=== PATIENT | female | born 1975 | race Caucasian/White ===

== ENCOUNTER 2022-10-01 14:21 | Outpatient (CLI) | payer BC, SELFPAY ==
[2022-10-03 19:05] LABS: TSH Receptor Antibody <0.80 IU/L (<=1.75)
== END 2022-10-01 14:22 | disposition home or self-care (01) ==
LOC: LONREF 14:22
PROVIDERS: Visit Provider Obstetrics & Gynecology
DX: Z01.419 Encounter for gynecological examination (general) (routine) without abnormal findings (principal); L65.9 Nonscarring hair loss, unspecified
CPT/HCPCS: 83520

== ENCOUNTER 2022-11-26 07:53 | Emergency (ER) | payer BC, SELFPAY ==
[2022-11-26] VITALS (16 sets, daily range): BP systolic 106–123; BP diastolic 71–87; PULSE 70–91; RESP 18; TEMP 36.7; O2SAT 97–100; BMI 25.8
--- NOTE | 2022-11-26 08:45 | ED.GENADULT ---
HPI - General Adult General Date Seen: 11/26/22 Chief complaint: Chest Pain Stated complaint: Chest pain/radiates to left jaw Time Seen by Provider: 11/26/22 08:13 Source: patient Mode of arrival: ambulatory Limitations: no limitations History of Present Illness HPI narrative: Patient is a 47-year-old woman with underlying history of celiac disease who presents for evaluation of chest pain. She is here on Saturday, notes pain started on Saturday. She has had some associated intermittent lightheadedness. Pain initially on Saturday was more sharp, lasting a few seconds at a time, episodic, not associated with breathing, position, eating, exertion, or any other activities. Over the course of the weekend, she developed more of a pressure-type pain, which again has been episodic, lasting a little bit longer at a time, but again not predictable or associated with any particular activities. Today she feels like the pressure has been there most of the day. This morning, she had a sharp pain in her jaw when she woke up, which is what ultimately made her decide to come in. She has had some periods of lightheadedness, which she attributed to the fact that she has had 2 periods this month. Sometimes she gets anemic with heavy bleeding and so she thought that was probably the cause of the lightheadedness. She denies syncope, shortness of breath, nausea, vomiting, fever, unusual leg pain or swelling. She has a history of celiac, has not had significant GI complaints. She is followed at the [facility] for that, says she has probably behind schedule on colonoscopy an MRI for her celiac. She does have a history of cholecystectomy and appendectomy, otherwise general health is good. Denies family history of serious medical conditions, specifically no coronary artery disease, stroke, PE DVT. There is a history of thyroid disease. She does not smoke or drink. Related Data Home Medications Medication Instructions Recorded Confirmed evening primrose oil 500 mg capsule 500 mg PO BID 10/01/22 10/01/22 ferrous gluconate 324 mg (38 mg 324 mg PO QDAY 10/01/22 10/01/22 iron) tablet loratadine 10 mg tablet (Claritin) 10 mg PO QDAY PRN allergy symptoms 10/01/22 10/01/22 multivitamin,tx-minerals 1 tab PO QDAY 10/01/22 10/01/22 rizatriptan 10 mg tablet 10 mg PO ONCE PRN migraine headache 10/01/22 10/01/22 Allergies Allergy/AdvReac Type Severity Reaction Status Date / Time Sulfa (Sulfonamide Allergy Mild Hives Verified 10/01/22 13:24 Antibiotics) gluten Allergy Unknown Celiac's Verified 10/01/22 13:24 Disease hydrocodone AdvReac Mild Vomiting Verified 10/01/22 13:24 latex AdvReac Unknown Rash Verified 10/01/22 13:24 Review of Systems Status of ROS: Reports: 10 or more systems reviewed and unremarkable except as noted in History and below [facility] Medical History Celiac disease (11/03/10) Essential tremor (08/25/12) Hemangioma of liver 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) History of vitamin D deficiency Irritable bowel syndrome (08/14/10) Menorrhagia Migraine (02/10/10) Seasonal allergies (06/14/11) Surgical History History of 2 sections History of breast biopsy History of cholecystectomy (2015) History of tubal ligation (2012) Status post appendectomy (11/12/12) Status post bunionectomy Family History Father Graves' disease Alcohol dependence Aunt Graves' disease Crohn's disease Uncle Graves' disease Crohn's disease Mother Alcohol dependence Brother Alcohol dependence Maternal Grandmother Lung cancer Paternal Grandfather Stroke High blood pressure Paternal Grandmother Breast cancer Maternal Grandfather Prostate cancer Social History Smoking Status: Former smoker How often do you have a drink containing alcohol: monthly or less AUDIT-C Alcohol total score: 1 Non-prescribed substance use: denies use Are you now , , , , never or living with a partner: Social isolation score (0-1 are the most socially isolated patients): 1 Little interest or pleasure in doing things: not at all Feeling down, depressed, or hopeless: not at all Do you think of yourself as: straight/heterosexual Gender Identity: female service: No Exam Narrative: Exam Narrative: Vital signs as noted above. In general, an alert, well-appearing patient. Head: Normocephalic, atraumatic. Eyes: Pupils are equal reactive. Extraocular movements are full. Conjunctivae are normal. ENT: Mucous membranes are moist. Throat is normal. Neck: Supple without lymphadenopathy. Heart: Regular rate and rhythm. No murmur or rub. Lungs: Clear bilaterally. No increased work of breathing, crackles or wheezes. Abdomen: Soft and nontender. No organomegaly. Extremities: Well perfused. No edema. No calf tenderness. Pulses intact. Neurologic: Patient is alert and oriented to person and place. Speech is fluent. Face is symmetric. Moves all extremities equally. Affect: Normal. Skin: Warm and dry. Well perfused. Const: Vital Signs, click to edit/add: Vital Signs - 24 hr 11/26/22 07:58 11/26/22 08:58 11/26/22 09:28 Temperature 98.0 F Pulse Rate 72 Pulse Rate [Left P ulse Oximeter] 76 Respiratory Rate 18 Blood Pressure Blood Pressure [] 121/82 Pulse Oximetry 97 100 [facility] 11/26/22 09:30 11/26/22 09:31 11/26/22 09:32 Temperature Pulse Rate 73 71 73 Pulse Rate [Left P ulse Oximeter] Respiratory Rate Blood Pressure 120/83 Blood Pressure [] Pulse Oximetry 100 100 100 [facility] 11/26/22 10:00 11/26/22 10:02 11/26/22 10:03 Temperature Pulse Rate 74 74 71 Pulse Rate [Left P ulse Oximeter] Respiratory Rate Blood Pressure 110/71 Blood Pressure [] Pulse Oximetry 100 100 100 [facility] 11/26/22 10:30 11/26/22 10:32 11/26/22 11:07 Temperature Pulse Rate 78 70 89 Pulse Rate [Left P ulse Oximeter] Respiratory Rate Blood Pressure 123/87 Blood Pressure [] Pulse Oximetry 99 99 99 [facility] 11/26/22 11:30 11/26/22 11:32 11/26/22 12:00 Temperature Pulse Rate 81 91 72 Pulse Rate [Left P ulse Oximeter] Respiratory Rate Blood Pressure 106/78 Blood Pressure [] Pulse Oximetry 99 98 99 Oxygen Delivery Me thod 11/26/22 12:02 Temperature Pulse Rate 81 Pulse Rate [Left P ulse Oximeter] Respiratory Rate Blood Pressure 108/76 Blood Pressure [] Pulse Oximetry 100 Oxygen Delivery Me thod Course Course Hospital Course: On arrival, patient had an EKG which shows by my review a normal sinus rhythm, ventricular rate of 72 beats per minute. No acute ST segment changes, T-waves are unremarkable. She is maintained on the monitor and oximeter. Overall, her history is not significantly suggestive of acute coronary syndrome. I did give her an aspirin while we await lab tests. She does not have significant risk factors for PE suspicion is low for other causes such as dissection, pneumothorax, pneumonia, congestive heart failure, and GI causes seem relatively unlikely as well. She is status post cholecystectomy, does not have any abdominal tenderness so I would doubt pancreatitis, choledocholithiasis, or other biliary condition. Pain is not positional, EKG does not show changes suggestive of pericarditis. Labs are all reassuring. CBC shows a normal white blood cell count, hemoglobin is 11.8, only minimally low. Electrolytes are normal, LFTs are entirely within normal limits. CRP is less than 0.5, BNP is 54. Initial troponin and 2 hour troponin of 0 0. COVID is negative. TSH is normal at 1.88. Lipase is normal at 135. D-dimer is reassuringly normal at 0.33. Chest x-ray by my review looks slightly hyper expanded, but is otherwise normal, no evidence of pneumothorax, pleural effusion, pulmonary edema, infiltrate or other abnormalities. Final radiology report is pending at this time. She did receive some Toradol for discomfort. She reported to the nurse that the discomfort radiates toward the back like when she had gallbladder pain, her gallbladder is surgically absent, she has a normal lipase, normal bilirubin, LFTs, no abdominal tenderness. Etiology for symptoms at this time remains unclear. In the absence of any significant findings on laboratory or exam, would suggest observation at this time, close primary care follow-up and return for any worsening/severe or new symptoms. Discussed that while the troponin does rule out acute coronary syndrome, it does not rule out the possibility of coronary artery disease, and stress test may be considered if symptoms are persistent. Vital Signs Vital signs: Initial Vital Signs Temperature 98.0 F 11/26/22 07:58 Temperature Source Temporal Artery Scan 11/26/22 07:58 Pulse Rate 76 11/26/22 07:58 Respiratory Rate 18 11/26/22 07:58 Blood Pressure 121/82 11/26/22 07:58 Blood Pressure Mean 95 11/26/22 07:58 Pulse Oximetry 97 11/26/22 07:58 Oxygen Delivery Method 11/26/22 07:58 Vital Signs Temperature 98.0 F 11/26/22 07:58 Pulse Rate 76 11/26/22 07:58 Respiratory Rate 18 11/26/22 07:58 Blood Pressure 121/82 11/26/22 07:58 Pulse Oximetry 97 11/26/22 07:58 Oxygen Delivery Method 11/26/22 07:58 Temperature 98.0 F 11/26/22 07:58 Pulse Rate 81 11/26/22 12:02 Respiratory Rate 18 11/26/22 07:58 Blood Pressure 108/76 11/26/22 12:02 Pulse Oximetry 100 11/26/22 12:02 Oxygen Delivery Method 11/26/22 07:58 Medical Decision Making Lab Data Labs: Lab Results 11/26/22 11/26/22 11/26/22 Range/Units 08:55 08:55 08:55 WBC 5.65 (4.50-11.00) K/uL RBC 3.95 L (4.00-5.20) m/uL Hgb 11.8 L (12.0-16.0) gm/dL Hct 35.9 (33.0-51.0) % MCV 91 (80-100) fL MCH 30 (26-34) pg MCHC 33 (32-36) gm/dL RDW Coeff of Malachi 12.3 (11.5-15.5) % Plt Count 346 (140-440) K/uL Neut % (Auto) 51.5 (42.0-72.0) % Lymph % (Auto) 36.6 (20-44) % [place] % (Auto) 8.7 (0.0-11.0) % Eos % (Auto) 2.5 (0.0-7.0) % Baso % (Auto) 0.5 (0.0-3.0) % Neut # (Auto) 2.91 (1.7-7.0) K/uL Lymph # (Auto) 2.07 (0.90-2.90) K/uL [place] # (Auto) 0.50 (0.00-0.90) K/UL Eos # (Auto) 0.14 (0.00-0.50) K/uL Baso # (Auto) 0.03 (0.00-0.30) K/uL D-Dimer Quant (PE/DVT) 0.33 (0.00-0.50) ug/ml Sodium 138 (135-149) mmol/L Potassium 4.6 (3.6-5.1) mmol/L Chloride 104 (96-114) mmol/L Carbon Dioxide 27 (20-32) mmol/L BUN 15 (5-24) mg/dL Creatinine 0.9 (0.5-1.5) mg/dL Estimated Creat Clear 71.03 Estimated GFR 80 ml/min Glucose 98 (60-115) mg/dL Calcium 9.1 (8.4-10.6) mg/dL Total Bilirubin 0.5 (0.1-1.5) mg/dL Direct Bilirubin 0.2 (0.0-0.5) mg/dL AST 25 (12-35) U/L ALT 22 (4-35) U/L Alkaline Phosphatase 69 (40-150) U/L C-Reactive Protein < 0.5 L (0.5-1.0) mg/dL NT-Pro-B Natriuret Pep 54 pg/mL Total Protein 6.8 (6.0-8.3) g/dL Albumin 4.1 (3.3-5.0) g/dL Lipase 135 (23-300) U/L TSH (0.270-4.200) uIU/mL SARS-CoV-2 (PCR) (Negative) POC Troponin I (0.01-0.04) ng/ml 11/26/22 11/26/22 11/26/22 Range/Units 08:55 08:55 08:55 WBC (4.50-11.00) K/uL RBC (4.00-5.20) m/uL Hgb (12.0-16.0) gm/dL Hct (33.0-51.0) % MCV (80-100) fL MCH (26-34) pg MCHC (32-36) gm/dL RDW Coeff of Malachi (11.5-15.5) % Plt Count (140-440) K/uL Neut % (Auto) (42.0-72.0) % Lymph % (Auto) (20-44) % [place] % (Auto) (0.0-11.0) % Eos % (Auto) (0.0-7.0) % Baso % (Auto) (0.0-3.0) % Neut # (Auto) (1.7-7.0) K/uL Lymph # (Auto) (0.90-2.90) K/uL [place] # (Auto) (0.00-0.90) K/UL Eos # (Auto) (0.00-0.50) K/uL Baso # (Auto) (0.00-0.30) K/uL D-Dimer Quant (PE/DVT) (0.00-0.50) ug/ml Sodium (135-149) mmol/L Potassium (3.6-5.1) mmol/L Chloride (96-114) mmol/L Carbon Dioxide (20-32) mmol/L BUN (5-24) mg/dL Creatinine (0.5-1.5) mg/dL Estimated Creat Clear Estimated GFR ml/min Glucose (60-115) mg/dL Calcium (8.4-10.6) mg/dL Total Bilirubin (0.1-1.5) mg/dL Direct Bilirubin (0.0-0.5) mg/dL AST (12-35) U/L ALT (4-35) U/L Alkaline Phosphatase (40-150) U/L C-Reactive Protein (0.5-1.0) mg/dL NT-Pro-B Natriuret Pep pg/mL Total Protein (6.0-8.3) g/dL Albumin (3.3-5.0) g/dL Lipase (23-300) U/L TSH 1.880 (0.270-4.200) uIU/mL SARS-CoV-2 (PCR) Negative SARS-CoV-2 (Negative) POC Troponin I 0.00 L (0.01-0.04) ng/ml 11/26/22 Range/Units 10:50 WBC (4.50-11.00) K/uL RBC (4.00-5.20) m/uL Hgb (12.0-16.0) gm/dL Hct (33.0-51.0) % MCV (80-100) fL MCH (26-34) pg MCHC (32-36) gm/dL RDW Coeff of Malachi (11.5-15.5) % Plt Count (140-440) K/uL Neut % (Auto) (42.0-72.0) % Lymph % (Auto) (20-44) % [place] % (Auto) (0.0-11.0) % Eos % (Auto) (0.0-7.0) % Baso % (Auto) (0.0-3.0) % Neut # (Auto) (1.7-7.0) K/uL Lymph # (Auto) (0.90-2.90) K/uL [place] # (Auto) (0.00-0.90) K/UL Eos # (Auto) (0.00-0.50) K/uL Baso # (Auto) (0.00-0.30) K/uL D-Dimer Quant (PE/DVT) (0.00-0.50) ug/ml Sodium (135-149) mmol/L Potassium (3.6-5.1) mmol/L Chloride (96-114) mmol/L Carbon Dioxide (20-32) mmol/L BUN (5-24) mg/dL Creatinine (0.5-1.5) mg/dL Estimated Creat Clear Estimated GFR ml/min Glucose (60-115) mg/dL Calcium (8.4-10.6) mg/dL Total Bilirubin (0.1-1.5) mg/dL Direct Bilirubin (0.0-0.5) mg/dL AST (12-35) U/L ALT (4-35) U/L Alkaline Phosphatase (40-150) U/L C-Reactive Protein (0.5-1.0) mg/dL NT-Pro-B Natriuret Pep pg/mL Total Protein (6.0-8.3) g/dL Albumin (3.3-5.0) g/dL Lipase (23-300) U/L TSH (0.270-4.200) uIU/mL SARS-CoV-2 (PCR) (Negative) POC Troponin I 0.00 L (0.01-0.04) ng/ml Discharge Plan Discharge Clinical Impression: Chest pain Patient Disposition: Home, Self-Care Condition: Improved Instructions: Chest Pain (ED) Additional Instructions: Return for severe pain, new symptoms such as shortness of breath, vomiting, fever. Primary care follow-up in the next week, this can be [facility] or [facility], whichever is more convenient for you. Prescriptions: No Action evening primrose oil 500 mg capsule 500 mg PO BID Rx Instructions: give with meal/snack multivitamin,tx-minerals Tablet 1 tab PO QDAY ferrous gluconate 324 mg (38 mg iron) tablet 324 mg PO QDAY rizatriptan 10 mg tablet 10 mg PO ONCE PRN (Reason: migraine headache) Rx Instructions: as a single dose loratadine [Claritin] 10 mg tablet 10 mg PO QDAY PRN (Reason: allergy symptoms) Follow Up/Referrals: Provider,Not a Local [Primary Care Provider] - Stand Alone Forms: Employee Benefit Plansth Info Instructions
[2022-11-26] MEDS: 0.9 % SODIUM CHLORIDE 1000 ml 1,000 ML IV (08:52)
[2022-11-26] MEDS: ASPIRIN 81 MG TAB.CHEW 324 MG PO (08:52)
[2022-11-26 09:11] LABS: Basophils Absolute Auto 0.03 K/uL (0.00-0.30); Basophils Percent Auto 0.5 % (0.0-3.0); Eosinophils Absolute Auto 0.14 K/uL (0.00-0.50); Eosinophils Percent Auto 2.5 % (0.0-7.0); Hematocrit 35.9 % (33.0-51.0); Hemoglobin* 11.8 gm/dL (12.0-16.0); Immature Granulocytes Abs Auto 0.01 K/uL (0.00-0.30); Immature Granulocytes Pct Auto 0.2 %; Lymphocytes Absolute Auto 2.07 K/uL (0.90-2.90); Lymphocytes Percent Auto 36.6 % (20-44); Mean Corpuscular HGB Conc 33 gm/dL (32-36); Mean Corpuscular Hemoglobin 30 pg (26-34); Mean Corpuscular Volume 91 fL (80-100); Monocytes Percent Auto 8.7 % (0.0-11.0); Neutrophils Absolute Auto 2.91 K/uL (1.7-7.0); Neutrophils Percent Auto 51.5 % (42.0-72.0); Platelet Count* 346 K/uL (140-440); RDW Coefficient of Variation % 12.3 % (11.5-15.5); Red Blood Count 3.95 m/uL (4.00-5.20); White Blood Count* 5.65 K/uL (4.50-11.00)
[2022-11-26 09:12] LABS: Slide Review Reflex No
[2022-11-26 09:40] LABS: Albumin* 4.1 g/dL (3.3-5.0); Chloride* 104 mmol/L (96-114)
[2022-11-26 09:41] LABS: Potassium* 4.6 mmol/L (3.6-5.1); Sodium* 138 mmol/L (135-149)
[2022-11-26 09:42] LABS: Creatinine* 0.9 mg/dL (0.5-1.5); Est. Creatinine Clearance* 71.03; Estimated Glomerular Filt Rate 80 ml/min
[2022-11-26 09:43] LABS: Alkaline Phosphatase* 69 U/L (40-150); Aspartate Amino Transferase* 25 U/L (12-35); Bilirubin Direct* 0.2 mg/dL (0.0-0.5); Bilirubin Total* 0.5 mg/dL (0.1-1.5); Blood Urea Nitrogen* 15 mg/dL (5-24); Carbon Dioxide* 27 mmol/L (20-32); Lipase* 135 U/L (23-300); Total Protein* 6.8 g/dL (6.0-8.3)
[2022-11-26 09:44] LABS: Alanine Aminotransferase* 22 U/L (4-35); Calcium* 9.1 mg/dL (8.4-10.6); Glucose* 98 mg/dL (60-115)
[2022-11-26 09:48] LABS: SARS PCR* Negative SARS-CoV-2 (Negative)
[2022-11-26 10:08] LABS: C Reactive Protein* < 0.5 mg/dL (0.5-1.0); NT Pro B Type NatriureticPept* 54 pg/mL
[2022-11-26 10:40] LABS: D Dimer Quantitative* 0.33 ug/ml (0.00-0.50)
--- NOTE | 2022-11-26 10:48 | CRLHL7_ITS ---
For Patients: As a result of the Century Cures Act, medical imaging exams and procedure reports are released immediately into your electronic medical record. You may view this report before your referring provider. If you have questions, please contact your health care provider. INDICATION: Chest pain. TECHNIQUE: Chest 2 views. COMPARISON: None. FINDINGS: Cardiovascular and mediastinum: Heart size and vasculature are normal in caliber and appearance. Lungs and pleural spaces: Lungs are clear. No sign of infiltrate or mass. No sign of pleural effusion. No pneumothorax. Bones and soft tissues: No significant findings. IMPRESSION: No acute or significant findings. Dictated by Johan Ha MD @ 11/26/2022 12:00:14 PM (Electronically Signed)
[2022-11-26] MEDS: KETOROLAC 15 MG/ML inj IVP (11:14)
== END 2022-11-26 12:15 | disposition home or self-care (01) ==
PROVIDERS: Emergency Provider Emergency Medicine
DX: R07.9 Chest pain, unspecified (principal)
CPT/HCPCS: 36415; 71046; 80048; 80076; 83690; 83880; 84443; 84484; 85025; 85379; 86140; 87635; 93005; 94761; 96374; 99284; 99285; A9270; J1885; J7030

== ENCOUNTER 2022-11-27 19:11 | Outpatient (CLI) | payer BC, SELFPAY ==
--- NOTE | 2022-11-27 19:30 | CRLHL7_ITS ---
For Patients: As a result of the Century Cures Act, medical imaging exams and procedure reports are released immediately into your electronic medical record. You may view this report before your referring provider. If you have questions, please contact your health care provider. BILATERAL SCREENING MAMMOGRAM WITH COMPUTER-AIDED DETECTION AND TOMOSYNTHESIS TECHNIQUE: CC and MLO views were obtained. These mammographic images have been obtained using full-field digital technique. These mammographic images were interpreted with the benefit of computer-aided detection. Breast Tomosynthesis was used in this interpretation. COMPARISON FILM: 03/29/21, 03/28/20, 11/12/18. FINDINGS: The breasts are heterogeneously dense, which may obscure small masses IMPRESSION: There is no radiographic evidence for malignancy. ASSESSMENT: BI-RADS Category 1: Negative RECOMMENDATION: Routine screening mammogram in 1 year. A lay language report of this examination will be provided to the patient. Ramón Ch M.D. Diagnostic Radiologist [email or web address] RAFIA/arianna / be/Dictated by: Ramón Ch MD @ 11/28/2022 12:03:00 PM (Electronically Signed)
== END 2022-11-27 19:12 | disposition home or self-care (01) ==
LOC: MAMMO 19:11
PROVIDERS: Visit Provider Obstetrics & Gynecology
DX: Z12.31 Encounter for screening mammogram for malignant neoplasm of breast (principal); R92.2 Inconclusive mammogram
CPT/HCPCS: 77063; 77067

== ENCOUNTER 2023-12-19 15:11 | Outpatient (CLI) | payer OTHER, SELFPAY ==
--- NOTE | 2023-12-19 15:20 | MM_ITS ---
Patient: AMY ELKINS Facility:?[facility] Patient ID:?[id number] Site Patient ID:?[id number]. Site :?[id number] Study:?XRay-Breast Bilateral 3D W/CAD-12/19/2023 3:51:00 PM Ordering Physician:Amadou Final Report: BILATERAL SCREENING MAMMOGRAM WITH COMPUTER-AIDED DETECTION AND TOMOSYNTHESIS TECHNIQUE: CC and MLO views were obtained. These mammographic images have been obtained using full-field digital technique. These mammographic images were interpreted with the benefit of computer-aided detection. Breast Tomosynthesis was used in this interpretation. COMPARISON FILM: 11/27/22, 03/29/21, 03/28/20. FINDINGS: The breasts are heterogeneously dense, which may obscure small masses. IMPRESSION: There is no radiographic evidence for malignancy. ASSESSMENT: BI-RADS Category 1: Negative RECOMMENDATION: Routine screening mammogram in 1 year. A lay language report of this examination will be provided to the patient. Ramón Ch M.D. Diagnostic Radiologist [email or web address] DSM/sp R& Transcribed: 12:26 p.m. SP/Dictated by: Raómn Ch MD @ 12/20/2023 9:04:00 AM Signed by:?Ramón Ch MD @12/20/2023 12:33:15 PM (Electronic Signature)
== END 2023-12-19 15:12 | disposition home or self-care (01) ==
LOC: MAMMO 15:12
PROVIDERS: Visit Provider Obstetrics & Gynecology
DX: Z12.31 Encounter for screening mammogram for malignant neoplasm of breast (principal); R92.2 Inconclusive mammogram
CPT/HCPCS: 77063; 77067

== ENCOUNTER 2025-04-20 11:49 | Emergency (ER) | payer OTHER, SELFPAY ==
--- OUTSIDE RECORDS SUMMARY | 2025-04-20 11:57 | XMS_ITS | Clinical Summary ---
Author Organization [employer] [facility] Address [facility] [place] [address] Care Team Providers Care Wealth Management Advisor Name Role Phone Pcp, No Primary Care Provider Unavailabl e Allergies Active Allergy Reactions Criticality Noted Date Comments Gluten Diarrhea High 09/15/2015 Latex Rash 02/11/2007 Sensitive, mucosal irritation on contact Sulfa (Sulfonamide Antibiotics) *Unknown - Childhood Rxn 02/11/2007 Not sure of reaction Medications multivitamin (MVI) tablet Take 1 tablet by mouth once daily. 0 7 Active omega-3 fatty acids-vitamin E (FISH OIL) 1,000 mg cap Take by mouth. 0 7 Active nitrofurantoin macrocrystals/mo nohydrate (MACROBID) 100 mg capsuleIndicatio ns:Recurrent UTI Take 1 capsule by mouth once daily. - take 1 pill after intercourse 30 capsule 2 7 Active esomeprazole (NEXIUM) 20 mg capsule Take 20 mg by mouth once daily before a meal. Active diphenhydrAMINE (UNISOM SLEEPGELS) 50 mg capsule Take 50 mg by mouth every 6 hours if needed. Active albuterol HFA (PROAIR HFA) 90 mcg/actuation inhalerIndicatio ns:Dyspnea, unspecified type Inhale 2 Puffs by mouth 4 times daily if needed. 1 Inhaler 7 Active Active Problems Problem Noted Date Diagnosed Date Recurrent UTI 11/07/2016 Celiac disease 09/19/2015 Overview (09/19/2015): Maria 1 lesion with intraepithelial lymphocytosis Family History Medical History Relation Name Comments Thyroid Disease Father Relation Name Status Comments Father Social History Tobacco Use Types Packs/Day Years Used Date Smoking Tobacco: Former Cigarettes Q uit: 09/19/2011 Smokeless Tobacco: Never Tobacco Cessation:Counseling Given: Yes Alcohol Use Standard Drinks/Week Comments Yes 0 (1 standard drink = 0.6 oz pure alcohol) socially; 2 glasses per weekend Comments No Sex and Gender Information Value Date Recorded Sex Assigned at Not on file Legal Sex Female 5:21 AM ASSISTANT PRODUCT MANAGER Gender Identity Not on file Sexual Orientation Not on file Obstetrics History Para Term AB IAB SAB Ectopic Multiple Livin g Live Births 3 1 1 0 1 0 1 0 0 1 Date Outcome GA Total Labor Labor/2nd/3rd Weight Sex Type Anes PTL Alejandrina A1 A5 Name Clin SAB Term Last Filed Vital Signs Vital Sign Reading Time Taken Comments Blood Pressure 104/67 05/30/2017 8:00 PM CDT Pulse 98 05/30/2017 8:00 PM CDT Temperature 36.7 C (98.1 F) 05/30/2017 6:00 PM CDT Respiratory Rate 16 05/30/2017 6:00 PM CDT Oxygen Saturation 99% 05/30/2017 8:00 PM CDT Inhaled Oxygen Concentration - - Weight 59 kg (130 lb) 05/30/2017 6:00 PM CDT Height 165.1 cm (5' 5) 05/30/2017 6:00 PM CDT Body Mass Index 21.63 05/30/2017 6:00 PM CDT Plan of Treatment Health Maintenance Due Date Last Done Comments Tetanus booster 1988 Depression screening for age 12+ 1989 Hepatitis B series for 19+ (1 of 3 - 19+ 3-dose series) 1996 BMI (ht and wt on same day) for age 18+ 05/30/2018 05/30/2017 Colonoscopy through age 75 2022 Lipids for age 45-75 2022 Mammogram for age 45-75 2022 COVID-19 vaccine series ( - 2023-25 season) 2024 Influenza Vaccine (#1) 2025 Pap test for age 21-65 12/19/2026 , 12/20/2023, 05/05/2021, Additional history exists HIV for age 15-65 Completed 08/25/2014 Hepatitis C screening for age 18-79 Completed 08/25/2014 Pneumococcal series for age 6-49 Aged Out No longer eligible based on patient's age to complete this topic Procedures Procedure Name Priority Date/Time Associated Diagnosis Comments HPV HIGH RISK Routine 12/20/2023 10:15 AM CDT RAPID HIV SCREEN STAT 08/25/2014 2:13 PM ASSISTANT PRODUCT MANAGER ANTI HCV STAT 08/25/2014 2:13 PM ASSISTANT PRODUCT MANAGER from Last 3 Months or Most Recently Relevant to Health Maintenance Results * HPV HIGH RISK (12/20/2023 10:15 AM CDT) TYPE 16 Negative Negative 12/24/2023 2:22 PM CDT [facility] TYPE 18 Negative Negative 12/24/2023 2:22 PM CDT [facility] OTHER HIGH RISK TYPES Negative Negative 12/24/2023 2:22 PM CDT [facility] Other (Cervical) 12/20/2023 10:15 AM CDT 12/23/2023 10:00 AM CDT Narrative [facility] - 12/24/2023 2:22 PM CDT HPV types 16, 18, 31, 33, 35, 39, 45, 51, 52, 56, 58, 59, 66 and 68 DNA were undetectable or below the pre-set threshold. Methodology: Rani Karla 4800 HPV Test us Viridiana Contreras MD MICROBIOLOGY Final Resu lt [facility] [address] [place] [address], * RAPID HIV SCREEN (08/25/2014 2:13 PM ASSISTANT PRODUCT MANAGER) RAPID HIV SCREEN Non-Reacti ve Non-Reacti ve 08/25/2014 2:46 PM ASSISTANT PRODUCT MANAGER [facility] Blood specimen (specimen) BLOOD SPECIMEN / Unknown Venipuncture / Unknown 08/25/2014 2:13 PM ASSISTANT PRODUCT MANAGER 08/25/2014 2:17 PM ASSISTANT PRODUCT MANAGER us Larry Osei MD CHEMISTRY Final Resu lt [facility] [address] [place] [address] * ANTI HCV (08/25/2014 2:13 PM ASSISTANT PRODUCT MANAGER) HEPATITIS C ANTIBODY Non-Reacti ve Non-Reacti ve 08/25/2014 7:52 PM ASSISTANT PRODUCT MANAGER [facility] Blood specimen (specimen) BLOOD SPECIMEN / Unknown Venipuncture / Unknown 08/25/2014 2:13 PM ASSISTANT PRODUCT MANAGER 08/25/2014 2:17 PM ASSISTANT PRODUCT MANAGER Narrative [facility] - 08/25/2014 7:52 PM ASSISTANT PRODUCT MANAGER Antibodies to HCV not detected; does not exclude the possibility of exposure to HCV. us Larry Osei MD SEND OUTS Final Resu lt [facility] [address] [place] [address], from Last 3 Months or Most Recently Relevant to Health Maintenance Insurance [facility] Advance Directives * Full Code (Latest Code Status on File) Date Activated Date Inactivated Comments 09/21/2015 5:57 AM 09/21/2015 4:06 PM * Full Code Date Activated Date Inactivated Comments 02/11/2007 3:22 PM 02/11/2007 8:25 PM Care Teams Wealth Management Advisor Relationship Specialty Start Date End Date Pcp, No . PCP - General 05/28/16
--- OUTSIDE RECORDS SUMMARY | 2025-04-20 11:57 | XMS_ITS | Clinical Summary ---
Author Organization [facility] Address [address] [address] Phone Care Team Providers Care Curriculum And Instruction Director Name Role Phone Unavailable Primary Care Provider Unavailabl e Allergies Active Allergy Reactions Criticality Noted Date Comments Gluten Meal 02/07/2019 Sulfa Drugs 02/07/2019 Medications No known medications Social History Tobacco Use Types Packs/Day Years Used Date Smoking Tobacco: Never Assessed Comments Unknown Sex and Gender Information Value Date Recorded Sex Assigned at Not on file Legal Sex Female 10:53 AM CDT Gender Identity Not on file Sexual Orientation Not on file Last Filed Vital Signs Vital Sign Reading Time Taken Comments Blood Pressure 128/80 02/07/2019 11:08 AM CDT Pulse 105 02/07/2019 11:08 AM CDT Temperature 37 C (98.6 F) 02/07/2019 11:08 AM CDT Respiratory Rate 18 02/07/2019 11:08 AM CDT Oxygen Saturation 97% 02/07/2019 11:08 AM CDT Inhaled Oxygen Concentration - - Weight 61.2 kg (135 lb) 02/07/2019 11:08 AM CDT Height 165.1 cm (5' 5) 02/07/2019 11:08 AM CDT Body Mass Index 22.47 02/07/2019 11:08 AM CDT Plan of Treatment Not on file [facility]
[2025-04-20 12:18] VITALS: BP 124/84; PULSE 80; RESP 20; TEMP 35.9; O2SAT 98; BMI 27.5
[2025-04-20] MEDS: ONDANSETRON 2 MG/ML inj 4 MG IVP (12:54)
--- NOTE | 2025-04-20 12:54 | ED_ITS ---
HPI - Headache General Chief Complaint: Headache/Migraine Stated Complaint: Migraine Time Seen by Provider: 04/20/25 12:24 History of Present Illness HPI Narrative: This 49-year-old female comes in reporting symptoms of a migraine headache with light sensitivity. She states that she has a history of migraines and typically uses uhcr-ged-pizyyuh medicines to successfully treat them. She has used these same medicines recently without much relief and comes in at this time. She does not have any neurologic deficit or other complaints. Related Data Home Medications ?Medication ?Instructions ?Recorded ?Confirmed loratadine 10 mg tablet (Claritin) 10 mg PO QDAY PRN a llergy symptoms 10/01/22 04/20/25 multivitamin,tx-minerals 1 tab PO QDAY 10/01/2204/20 Previous Rx's ?Medication ?Instructions ?Recorded L norgest/E estradiol-E estrad 1 tab PO QDAY #182 ea 1 10/28/23 0.15 mg-30 mcg (84)/10 mcg(7) tabs,3mos ketorolac 10 mg tablet 10 mg PO TID 5 days #15 tabs 04/20/25 ondansetron HCl 4 mg tablet 4 mg PO Q8H #15 tabs 04/20 Allergies Allergy/AdvReac Type Severity Reaction Status Date / Time Sulfa (Sulfonamide Allergy Mild Hives Verified 04/20/25 12:22 Antibiotics) gluten Allergy Unknown Celiac's Verified 04/20/25 12:22 Disease hydrocodone AdvReac Mild Vomiting Verified 04/20/25 12:22 latex AdvReac Unknown Rash Verified 04/20/25 12:22 Review of Systems Status of ROS: Reports: 10 or more systems reviewed and unremarkable except as noted in History and below Narrative: Constitutional: No fevers, no weight gain or loss. Eyes: No discharge. No vision changes. HENT: No congestion, no sore throat, no ear pain. Cardiovascular: No chest pain, no palpitations. Respiratory: No shortness of breath, no wheezes, no cough. Gastrointestinal: No abdominal pain, no vomiting, no diarrhea. Genitourinary: No dysuria, no hematuria. Musculoskeletal: Normal range of motion. Skin: No rashes, no pruritis. Neurological: No dizziness, weakness, sensory change, speech change. Endo/Heme/Allergies: No bruising or bleeding. No polydipsia. Pysch: no suicidality, no anxiety, no insomnia. All other systems reviewed and are negative. [facility] Medical History History of pre-eclampsia (2003) ?Z87.59 - Personal history of other complications of , childbirth and the puerperium (ICD-10) Seasonal allergies (06/14/11) ?J30.2 - Other seasonal allergic rhinitis (ICD-10) Migraine (02/10/10) ?G43.909 - Migraine, unspecified, not intractable, without status migrainosus (ICD-10) Menorrhagia ?N92.0 - Excessive and frequent menstruation with regular cycle (ICD-10) Irritable bowel syndrome (08/14/10) ?K58.9 - Irritable bowel syndrome without diarrhea (ICD-10) Hemangioma of liver ?D18.03 - Hemangioma of intra-abdominal structures (ICD-10) Essential tremor (08/25/12) ?G25.0 - Essential tremor (ICD-10) Celiac disease (11/03/10) ?K90.0 - Celiac disease (ICD-10) History of vitamin D deficiency ?Z86.39 - Personal history of other endocrine, nutritional and metabolic disease (ICD-10) 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) ?Z86.69 - Personal history of other diseases of the nervous system and sense organs (ICD-10) Surgical History History of 2 sections ?Z98.891 - History of uterine scar from previous surgery (ICD-10) Status post bunionectomy ?Z98.890 - Other specified postprocedural states (ICD-10) Status post appendectomy (11/12/12) ?Z90.49 - Acquired absence of other specified parts of digestive tract (ICD- 10) History of tubal ligation (2012) ?Z98.51 - Tubal ligation status (ICD-10) History of cholecystectomy (2015) ?Z90.49 - Acquired absence of other specified parts of digestive tract (ICD- 10) History of breast biopsy ?Z98.890 - Other specified postprocedural states (ICD-10) Family History Father Graves' disease Alcohol dependence Aunt Graves' disease Crohn's disease Uncle Graves' disease Crohn's disease Mother Alcohol dependence Brother Alcohol dependence Maternal Grandmother Lung cancer Paternal Grandfather Stroke High blood pressure Paternal Grandmother Breast cancer Maternal Grandfather Prostate cancer Social History What is your current living situation?: I presently have a place to live Problems where you live: no known problems In the past 12 months, utilities in danger of being shut off: no In past 12 months, lack of transportation kept you from medical appts, meetings, work, or getting things needed for daily living: no In the past 12 mos, have been you worried that your food would run out before you had money to buy more?: never true In the past 12 mos, the food you bought just didn't last and you didn't have money to buy more?: never true Smoking Status: Former smoker Do you use any of these nicotine containing products: None Second hand tobacco smoke exposure: No How often do you have a drink containing alcohol: monthly or less AUDIT-C Alcohol total score: 1 Non-prescribed substance use: denies use Are you now , , , , never or living with a partner: Social isolation score (0-1 are the most socially isolated patients): 1 How often does anyone, including family, friends and others, physically hurt you : never How often does anyone, including family, friends and others, insult or talk down to you: never How often does anyone, including family, friends and others, threaten you with harm: never How often does anyone, including family, friends and others, scream or curse at you: never Do you think of yourself as: straight/heterosexual Gender Identity: female service: No Exam Narrative: Exam Narrative: Constitutional: Well-developed, well-nourished, no acute distress. HEENT: Normocephalic, atraumatic. Neck: Normal range of motion. Nontender. Supple. Heart: Intact distal pulses. Lungs: No chest discomfort. No wheezes, rhonchi, or rales. Abdomen: Nontender. Back: Normal range of motion. Extremities: Normal range of motion. No injury. Skin: Intact. No rash. Warm. No erythema or pallor. Neurologic: No altered sensation. No weakness. Alert and oriented. Psychiatric: No suicidality. No anxiety or depression. No insomnia. Nursing notes and vitals signs are reviewed. Const: Vital Signs, click to edit/add: Vital Signs - 24 hr 04/20/25 12:18 Temperature 96.7 F L Pulse Rate [Pulse Oximeter] 80 Respiratory Rate 20 Blood Pressure [Ri ght Upper Arm] 124/84 Pulse Oximetry 98 Oxygen Delivery Me thod Room Air Course Vital Signs Vital signs: Initial Vital Signs Temperature 96.7 F L 04/20/25 12:18 Temperature Source Temporal Artery Scan 04/20/25 12:18 Pulse Rate 80 04/20/25 12:18 Pulse Rhythm Regular 04/20/25 12:18 Pulse Strength 3+ Normal 04/20/25 12:18 Respiratory Rate 20 04/20/25 12:18 Blood Pressure 124/84 04/20/25 12:18 Blood Pressure Mean 97 04/20/25 12:18 Blood Pressure Position Sitting 04/20/25 12:18 Pulse Oximetry 98 04/20/25 12:18 Oxygen Delivery Method Room Air 04/20/25 12:18 Vital Signs Temperature 96.7 F L 04/20/25 12:18 Pulse Rate 80 04/20/25 12:18 Respiratory Rate 20 04/20/25 12:18 Blood Pressure 124/84 04/20/25 12:18 Pulse Oximetry 98 04/20/25 12:18 Oxygen Delivery Method Room Air 04/20/25 12:18 Temperature 96.7 F L 04/20/25 12:18 Pulse Rate 80 04/20/25 12:18 Respiratory Rate 20 04/20/25 12:18 Blood Pressure 124/84 04/20/25 12:18 Pulse Oximetry 98 04/20/25 12:18 Oxygen Delivery Method Room Air 04/20/25 12:18 Medications Administered Medications: Discontinued Medications Generic Name Dose Route Start Last Admin Trade Name Freq PRN Reason Stop Dose Admin Diphenhydramine HCl 50 mg 04/20/25 12:29 04/20/25 12:54 Diphenhydramine 50 Mg/Ml Inj IVP 04/20/25 12:30 50 mg ONCE ONE Administration Ketorolac Tromethamine 30 mg 04/20/25 12:29 04/20/25 12:54 Ketorolac 30 Mg/Ml Inj IVP 04/20/25 12:30 30 mg ONCE ONE Administration Ondansetron HCl 4 mg 04/20/25 12:29 04/20/25 12:54 Ondansetron 2 Mg/Ml Inj IVP 04/20/25 12:30 4 mg ONCE ONE Administration MDM - Headache MDM Narrative Medical decision making narrative: This patient has a history of migraine headaches in comes in because of 1 that is not responding to her normal frit-tlh-aboigzd treatments. She is not showing any signs of symptoms that require a diagnostic workup at this time. An IV was established and the patient received Toradol 30 mg, Benadryl 50 mg, and Zofran 4 mg. This brought sufficient relief to her symptoms. She feels okay to return home. I did provide prescriptions for Toradol and Zofran for ongoing use if symptoms arise. Discharge Plan Discharge Clinical Impression: Migraine Patient Disposition: Home, Self-Care Condition: Improved Additional Instructions: Take medication as needed and directed. Follow up with MD return if symptoms are persistent or worsening. Prescriptions: New ketorolac 10 mg tablet 10 mg PO TID 5 Days Qty: 15 0RF ondansetron HCl 4 mg tablet 4 mg PO Q8H Qty: 15 0RF No Action multivitamin,tx-minerals Tablet 1 tab PO QDAY loratadine [Claritin] 10 mg tablet 10 mg PO QDAY PRN (Reason: allergy symptoms) L norgest/e.estradiol-e.estrad 0.15 mg-30 mcg (84)/10 mcg (7) tablets,dose pack,3 month 1 tab PO QDAY Qty: 182 1RF Follow Up/Referrals: Provider,Not a Local [Primary Care Provider, Family Practice] Stand Alone Forms: [employer] Info Instructions
== END 2025-04-20 14:01 | disposition home or self-care (01) ==
PROVIDERS: Emergency Provider Emergency Medicine Emergency Medical Services
DX: G43.909 Migraine, unspecified, not intractable, without status migrainosus (principal)
CPT/HCPCS: 96374; 96375; 99284; J1200; J1885; J2405

== ENCOUNTER 2025-04-28 09:49 | Outpatient (CLI) | payer OTHER, SELFPAY | END 2025-04-28 09:50 | disposition home or self-care (01) | PROVIDERS: Visit Provider Obstetrics & Gynecology | DX: N39.0 Urinary tract infection, site not specified (principal); Z13.6 Encounter for screening for cardiovascular disorders; Z13.29 Encounter for screening for other suspected endocrine disorder; Z13.9 Encounter for screening, unspecified | CPT/HCPCS: 80048; 80061; 84443; 87086 ==

== ENCOUNTER 2025-05-20 08:35 | Emergency (ER) | payer OTHER, SELFPAY ==
--- OUTSIDE RECORDS SUMMARY | 2025-05-20 08:37 | XMS_ITS | Clinical Summary ---
Author Organization [facility] Address [facility] [place] [address] Care Team Providers Care School Cleaner Name Role Phone Pcp, No Primary Care [...] on file Legal Sex Female 5:21 AM PEST CONTROL SERVICE REPRESENTATIVE Gender Identity Not on file Sexual Orientation [...] for age 45-75 2022 COVID-19 vaccine series (2023- season) 2025 Influenza Vaccine (#1) 2025 Pap test for age 21-65 12/19/2026 4, 12/20/2023, 05/05/2021, Additional history exists RSV vaccine for adults or (1 - 1-dose 75+ series) 2052 HIV for age 15-65 Completed 08/25/2014 Hepatitis C screening for age 18-79 Completed 08/25/2014 Pneumococcal series for age 6-49 Aged Out No longer eligible based on patient's age to complete this topic Procedures Procedure Name Priority Date/Time Associated Diagnosis Comments HPV HIGH RISK Routine 12/20/2023 10:15 AM CDT RAPID HIV SCREEN STAT 08/25/2014 2:13 PM PEST CONTROL SERVICE REPRESENTATIVE ANTI HCV STAT 08/25/2014 2:13 PM PEST CONTROL SERVICE REPRESENTATIVE from Last 3 Months or Most Recently Relevant to Health Maintenance Results * HPV HIGH RISK (12/20/2023 10:15 AM CDT) TYPE 16 Negative Negative 12/24/2023 2:22 PM CDT [facility] TYPE 18 Negative Negative 12/24/2023 2:22 PM CDT [facility] OTHER HIGH RISK TYPES Negative Negative 12/24/2023 2:22 PM CDT [facility] Other (Cervical) 12/20/2023 10:15 AM CDT 12/23/2023 10:00 AM CDT Narrative [facility] - 12/24/2023 2:22 PM CDT HPV types 16, 18, 31, 33, 35, 39, 45, 51, 52, 56, 58, 59, 66 and 68 DNA were undetectable or below the pre-set threshold. Methodology: Rani Karla 4800 HPV Test us Viridiana Contreras MD MICROBIOLOGY Final Resu lt [facility] [address] [place] [address], * RAPID HIV SCREEN (08/25/2014 2:13 PM PEST CONTROL SERVICE REPRESENTATIVE) [facility] RAPID HIV SCREEN Non-Reacti ve Non-Reacti ve 08/25/2014 2:46 PM PEST CONTROL SERVICE REPRESENTATIVE [facility] Blood specimen (specimen) BLOOD SPECIMEN / Unknown Venipuncture / Unknown 08/25/2014 2:13 PM PEST CONTROL SERVICE REPRESENTATIVE 08/25/2014 2:17 PM PEST CONTROL SERVICE REPRESENTATIVE us Larry Osei MD CHEMISTRY Final Resu lt Performing Organization Address City/[facility]/ZIP Co de Phone Number [facility] [address] [place] [address] * ANTI HCV (08/25/2014 2:13 PM PEST CONTROL SERVICE REPRESENTATIVE) [facility] HEPATITIS C ANTIBODY Non-Reacti ve Non-Reacti ve 08/25/2014 7:52 PM PEST CONTROL SERVICE REPRESENTATIVE [facility] Blood specimen (specimen) BLOOD SPECIMEN / Unknown Venipuncture / Unknown 08/25/2014 2:13 PM PEST CONTROL SERVICE REPRESENTATIVE 08/25/2014 2:17 PM PEST CONTROL SERVICE REPRESENTATIVE Narrative [facility] - 08/25/2014 7:52 PM PEST CONTROL SERVICE REPRESENTATIVE Antibodies to HCV not detected; does not exclude the possibility of exposure to HCV. us Larry Osei MD SEND OUTS Final Resu lt [facility] [address] [place] [address], [place] from Last 3 Months or Most Recently Relevant to Health Maintenance [place] [address] [place] [address] [facility] [address] [facility] Leena [facility] [place] [address] [facility] Advance Directives * Full Code (Latest Code Status on File) Date Activated Date Inactivated Comments 09/21/2015 5:57 AM 09/21/2015 4:06 PM * Full Code Date Activated Date Inactivated Comments 02/11/2007 3:22 PM 02/11/2007 8:25 PM Care Teams School Cleaner Relationship Specialty Start Date End Date Pcp, No . PCP - General 05/28/16
[2025-05-20 08:38] VITALS: BP 105/72; PULSE 101; RESP 18; TEMP 36.9; O2SAT 96; BMI 27.5
--- OUTSIDE RECORDS SUMMARY | 2025-05-20 08:38 | XMS_ITS | Clinical Summary ---
Author Organization [facility] [employer] [facility] Address [address] [address] Phone Care Team Providers Care Behavioral Sciences Instructor Name Role Phone Unavailable Primary Care Provider [...] Plan of Treatment Not on file [facility]
--- NOTE | 2025-05-20 08:52 | ED_ITS ---
HPI - Abdominal Pain General Time Seen by Provider: 08:52 Date Seen: 05/20/25 Chief Complaint: Abdominal Pain Stated Complaint: Bloody stool Time Seen by Provider: 05/20/25 08:52 Source: patient and RN notes reviewed Mode of arrival: ambulatory Limitations: no limitations History of Present Illness HPI narrative: Marsha is a 49-year-old female with history of celiac disease, UTI treated with Macrobid 3 weeks ago who comes to the emergency room for evaluation regarding significant abdominal pain and bloody stools. Patient notes a normal evening last night. She states that she woke at 0100 hours with very sharp and crampy abdominal pain that doubled her over. She rated the pain a 10/10 at that time. She notes that she had frequent diarrhea stools on and then at the end of these episodes noted some pink tinged fluid and red flecks. She states that she had significant nausea but did not vomit. She notes throughout the rest of the night she continued to have cramping but was able to sleep somewhat. This morning however the pain returned. She notes that she had a formed stool that was very pink with a lot of mucus. During this time she did not have a fever but she was sweating significantly. She denies any . She also notes lots of gas with this particular event. At this time her pain is rated as 7/10 and she has not taken any medications. The pain when slightly improved seems to be centered in her low pelvis. When the pain increases it is across her entire lower abdomen. Patient does have history of celiac disease but does not know of any wound ingestion. She denies intake of uncooked meats. She has not had any recent travel. Her job does not entail changing diapers or frequent exposure to baby's. She does have a positive antibiotic use 3 weeks ago of Macrobid for UTI. Related Data Home Medications ?Medication ?Instructions ?Recorded ?Confirmed loratadine 10 mg tablet (Claritin) 10 mg PO QDAY PRN a llergy symptoms 10/01/22 05/20/25 Previous Rx's ?Medication ?Instructions ?Recorded L norgest/E estradiol-E estrad 1 tab PO QDAY #182 ea 1 10/28/23 0.15 mg-30 mcg (84)/10 mcg(7) tabs,3mos tizanidine 4 mg tablet 4 mg PO Q8H PRN muscle spast icity 05/08/25 #60 tabs oxycodone 5 mg tablet 5 mg PO Q4H PRN pain #6 tabs 05/20/25 Allergies Allergy/AdvReac Type Severity Reaction Status Date / Time Sulfa (Sulfonamide Allergy Mild Hives Verified 05/20/25 10:59 Antibiotics) gluten Allergy Unknown Celiac's Verified 05/20/25 10:59 Disease hydrocodone AdvReac Mild Vomiting Verified 05/20/25 10:59 latex AdvReac Unknown Rash Verified 05/20/25 10:59 Review of Systems Status of ROS Reports: 10 or more systems reviewed and unremarkable except as noted in History and below Const Denies: fever or chills ENMT Denies: throat pain, neck pain or nasal congestion Cardio Denies: chest pain, swelling of feet/ankles or shortness of breath with exertion Resp Denies: shortness of breath or cough GI Reports: abdominal pain, nausea, diarrhea, excessive passing of gas, blood in stool and mucus in stool; Denies: vomiting or constipation Denies: painful urination or urinary frequency Musculo Denies: back pain or neck pain PFSH [facility] Medical History History of pre-eclampsia (2003) ?Z87.59 - Personal history of other complications of , childbirth and the puerperium (ICD-10) Seasonal allergies (06/14/11) ?J30.2 - Other seasonal allergic rhinitis (ICD-10) Migraine (02/10/10) ?G43.909 - Migraine, unspecified, not intractable, without status migrainosus (ICD-10) Menorrhagia ?N92.0 - Excessive and frequent menstruation with regular cycle (ICD-10) Irritable bowel syndrome (08/14/10) ?K58.9 - Irritable bowel syndrome without diarrhea (ICD-10) Hemangioma of liver ?D18.03 - Hemangioma of intra-abdominal structures (ICD-10) Essential tremor (08/25/12) ?G25.0 - Essential tremor (ICD-10) Celiac disease (11/03/10) ?K90.0 - Celiac disease (ICD-10) History of vitamin D deficiency ?Z86.39 - Personal history of other endocrine, nutritional and metabolic disease (ICD-10) 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) ?Z86.69 - Personal history of other diseases of the nervous system and sense organs (ICD-10) Surgical History History of 2 sections ?Z98.891 - History of uterine scar from previous surgery (ICD-10) Status post bunionectomy ?Z98.890 - Other specified postprocedural states (ICD-10) Status post appendectomy (11/12/12) ?Z90.49 - Acquired absence of other specified parts of digestive tract (ICD- 10) History of tubal ligation (2012) ?Z98.51 - Tubal ligation status (ICD-10) History of cholecystectomy (2015) ?Z90.49 - Acquired absence of other specified parts of digestive tract (ICD- 10) History of breast biopsy ?Z98.890 - Other specified postprocedural states (ICD-10) Family History Father Graves' disease Alcohol dependence Aunt Graves' disease Crohn's disease Uncle Graves' disease Crohn's disease Mother Alcohol dependence Brother Alcohol dependence Maternal Grandmother Lung cancer Paternal Grandfather Stroke High blood pressure Paternal Grandmother Breast cancer Maternal Grandfather Prostate cancer Social History What is your current living situation?: I presently have a place to live Problems where you live: no known problems In the past 12 months, utilities in danger of being shut off: no In past 12 months, lack of transportation kept you from medical appts, meetings, work, or getting things needed for daily living: no In the past 12 mos, have been you worried that your food would run out before you had money to buy more?: never true In the past 12 mos, the food you bought just didn't last and you didn't have money to buy more?: never true Smoking Status: Former smoker Do you use any of these nicotine containing products: None Second hand tobacco smoke exposure: No How often do you have a drink containing alcohol: monthly or less AUDIT-C Alcohol total score: 1 Non-prescribed substance use: denies use Are you now , , , , never or living with a partner: Social isolation score (0-1 are the most socially isolated patients): 1 How often does anyone, including family, friends and others, physically hurt you : never How often does anyone, including family, friends and others, insult or talk down to you: never How often does anyone, including family, friends and others, threaten you with harm: never How often does anyone, including family, friends and others, scream or curse at you: never Do you think of yourself as: straight/heterosexual Gender Identity: female service: No Exam Narrative: Exam Narrative: Alert and oriented. In some distress/discomfort. External ears eyes nose clear. Heart with a tachycardic rate but normal rhythm. Lungs are clear. Increased abdominal sounds to auscultation. Abdomen is diffusely tender in the lower 3rd. No masses are palpated. Moving all extremities. No unusual bruising or skin discoloration. Const: Vital Signs, click to edit/add: Vital Signs - 24 hr 05/20/25 08:38 05/20/25 10:59 05/20/25 11:00 Temperature 98.4 F Pulse Rate 93 90 Pulse Rate [Pulse Oximeter] 101 H Respiratory Rate 18 Blood Pressure [Ri ght Upper Arm] 105/72 Pulse Oximetry 96 96 96 Oxygen Delivery Me thod Room Air 05/20/25 11:08 Temperature 99.0 F Pulse Rate Pulse Rate [Pulse Oximeter] 82 Respiratory Rate 16 Blood Pressure [Ri ght Upper Arm] 122/80 Pulse Oximetry 100 Oxygen Delivery Me thod Room Air Documenting provider has reviewed patient's vital signs: yes Course Course ED Course: Differential diagnosis includes but is not limited to C diff, colitis, viral enterocolitis, diverticulitis, gluten exposure. At this time will place IV give 1 L normal saline, Toradol 15 mg, Zofran 4 mg at sleeping. Will draw labs include CBC, comprehensive, CRP the house. Will also check GI pathogen panel, stool culture and C diff. patient in agreement with our plan.. Reevaluation(s) Reevaluation #1: Patient notes that the sharp pain is dissipated but the cramping is still quite significant. White count is normal with mild elevation of CRP to 1.3. No further stools to be able to collect for testing. I think at this point it would be martinez to go ahead with CT of the abdomen given patient's continued significant discomfort. Will order 4 mg of morphine as well as CT of the abdomen with contrast. Reevaluation #2: Patient noted to have some relief with the morphine and then pain started retur roberto carlos. Patient was hopeful she would be able to leave a stool sample unfortunately not successful. It abdominal CT reassuring. Vital Signs Vital signs: Initial Vital Signs Temperature 98.4 F 05/20/25 08:38 Temperature Source Temporal Artery Scan 05/20/25 08:38 Pulse Rate 101 H 05/20/25 08:38 Respiratory Rate 18 05/20/25 08:38 Blood Pressure 105/72 05/20/25 08:38 Blood Pressure Mean 83 05/20/25 08:38 Pulse Oximetry 96 05/20/25 08:38 Oxygen Delivery Method Room Air 05/20/25 08:38 Vital Signs Temperature 98.4 F 05/20/25 08:38 Pulse Rate 101 H 05/20/25 08:38 Respiratory Rate 18 05/20/25 08:38 Blood Pressure 105/72 05/20/25 08:38 Pulse Oximetry 96 05/20/25 08:38 Oxygen Delivery Method Room Air 05/20/25 08:38 Temperature 99.0 F 05/20/25 11:08 Pulse Rate 82 05/20/25 11:08 Respiratory Rate 16 05/20/25 11:08 Blood Pressure 122/80 05/20/25 11:08 Pulse Oximetry 100 05/20/25 11:08 Oxygen Delivery Method Room Air 05/20/25 11:08 Medications Administered Medications: Discontinued Medications Generic Name Dose Route Start Last Admin Trade Name Freq PRN Reason Stop Dose Admin Sodium Chloride 1,000 mls @ 1,000 mls/hr 05/20/25 09:02 05/20/25 10:23 0.9 % Sodium Chloride 1000 Ml IV 05/20/25 10:01 Infused .Q1H NAYANA Infusion Ketorolac Tromethamine 15 mg 05/20/25 09:02 05/20/25 09:19 Ketorolac 15 Mg/Ml Inj IVP 05/20/25 09:03 15 mg ONCE ONE Administration Morphine Sulfate 4 mg 05/20/25 10:11 05/20/25 10:27 Morphine 4 Mg/Ml Inj IVP 05/20/25 10:12 4 mg ONCE ONE Administration Ondansetron HCl 4 mg 05/20/25 09:02 05/20/25 09:19 Ondansetron 2 Mg/Ml Inj IVP 05/20/25 09:03 4 mg ONCE ONE Administration MDM - Abdominal Pain MDM Narrative Medical decision making narrative: 1. Abdominal pain patient had reassuring white count with mild elevation of CRP to 1.3. No changes in LFTs. Abdominal CT without any evidence of colitis bowel obstruction or mass. At this time patient had received Toradol and Zofran as well as 1 dose of morphine. She still has some abdominal cramping. She does feel well enough to go home however. She will alternate ibuprofen and Tylenol every 4 hours as needed for discomfort. Will give her a few tablets of oxycodone 2.5-5 mg q.4 hours p.r.n. pain 6. Tablets sent to her pharmacy. Did talk to her about the tendency for oxycodone to cause constipation and this may make her pain worse. I would advise her to use it sparingly. 2. Bloody stools no further stools in the ED. Hemoglobin and white count are stable. Patient will return with stool samples as she was unable to provide any today for a check of C diff, GI pathogen panel and stool culture. 3. Disposition-home at this time. Return for worsening symptoms and as needed. Medical Records Attestation: I reviewed the patient's medical records. Lab Data Attestation: I reviewed the patient's lab results. Labs: Lab Results 05/20/25 Range/Units 09:11 WBC 10.54 (4.50-11.00) K/uL RBC 4.20 (4.00-5.20) m/uL Hgb 12.4 (12.0-16.0) gm/dL Hct 37.6 (33.0-51.0) % MCV 90 (80-100) fL MCH 30 (26-34) pg MCHC 33 (32-36) gm/dL RDW Coeff of Malachi 13.0 (11.5-15.5) % Plt Count 443 H (140-440) K/uL Neut % (Auto) 68.6 (42.0-72.0) % Lymph % (Auto) 22.2 (20-44) % [place] % (Auto) 6.9 (0.0-11.0) % Eos % (Auto) 1.5 (0.0-7.0) % Baso % (Auto) 0.5 (0.0-3.0) % Neut # (Auto) 7.23 H (1.7-7.0) K/uL Lymph # (Auto) 2.34 (0.90-2.90) K/uL [place] # (Auto) 0.70 (0.00-0.90) K/UL Eos # (Auto) 0.16 (0.00-0.50) K/uL Baso # (Auto) 0.05 (0.00-0.30) K/uL Abs Immat Gran (auto) 0.03 (0.00-0.30) K/uL Imm/Tot Granulo (auto) 0.3 % Sodium 136 (135-149) mmol/L Potassium 4.2 (3.6-5.1) mmol/L Chloride 105 (96-114) mmol/L Carbon Dioxide 26 (20-32) mmol/L Anion Gap 5 L (7-15) mEq/L BUN 13 (5-24) mg/dL Creatinine 1.0 (0.5-1.5) mg/dL Estimated Creat Clear 62.58 Estimated GFR 70 ml/min Glucose 103 (60-115) mg/dL Calcium 9.2 (8.4-10.6) mg/dL Total Bilirubin 0.5 (0.1-1.5) mg/dL AST 24 (12-35) U/L ALT 23 (4-35) U/L Alkaline Phosphatase 83 (40-150) U/L C-Reactive Protein 1.3 H (0.5-1.0) mg/dL Total Protein 7.1 (6.0-8.3) g/dL Albumin 4.1 (3.3-5.0) g/dL Discharge Plan Discharge Clinical Impression: Bloody stool Abdominal pain Qualifiers: Abdominal location: lower abdomen, unspecified Qualified Code(s): R10.30 - Lower abdominal pain, unspecified Patient Disposition: Home, Self-Care Condition: Improved Additional Instructions: Alternate ibuprofen and Tylenol every 3-4 hours as needed for discomfort. Jarreau foods suggested. Avoid dairy for the next 2 weeks. Will also provide a few tablets of oxycodone if pain not relieved by ibuprofen or Tylenol. However, please use these sparingly because they can cause constipation and your abdominal pain may actually increase. Return with your stool sample. If abnormal you will be called. If worsening please return for re-evaluation. Prescriptions: New oxycodone 5 mg tablet 5 mg PO Q4H PRN (Reason: pain) Qty: 6 0RF Rx Instructions: May use 2.5-5 mg every 4 hours as needed. No Action tizanidine 4 mg tablet 4 mg PO Q8H PRN (Reason: muscle spasticity) Qty: 60 0RF loratadine [Claritin] 10 mg tablet 10 mg PO QDAY PRN (Reason: allergy symptoms) L norgest/e.estradiol-e.estrad 0.15 mg-30 mcg (84)/10 mcg (7) tablets,dose pack,3 month 1 tab PO QDAY Qty: 182 1RF Follow Up/Referrals: Provider,Not a Local [Non-Staff, Family Practice] Stand Alone Forms: MyHealth Info Instructions
[2025-05-20 09:18] LABS: Hematocrit 37.6 % (33.0-51.0); Hemoglobin* 12.4 gm/dL (12.0-16.0); Immature Granulocytes Abs Auto 0.03 K/uL (0.00-0.30); Immature Granulocytes Pct Auto 0.3 %; Lymphocytes Absolute Auto 2.34 K/uL (0.90-2.90); Mean Corpuscular HGB Conc 33 gm/dL (32-36); Mean Corpuscular Hemoglobin 30 pg (26-34); Mean Corpuscular Volume 90 fL (80-100); RDW Coefficient of Variation % 13.0 % (11.5-15.5); Red Blood Count 4.20 m/uL (4.00-5.20); White Blood Count* 10.54 K/uL (4.50-11.00)
[2025-05-20] MEDS: ONDANSETRON 2 MG/ML inj 4 MG IVP (09:19)
[2025-05-20 09:32] LABS: Albumin* 4.1 g/dL (3.3-5.0); Chloride* 105 mmol/L (96-114); Potassium* 4.2 mmol/L (3.6-5.1); Sodium* 136 mmol/L (135-149)
[2025-05-20 09:34] LABS: Slide Review Reflex No
[2025-05-20 09:35] LABS: Alanine Aminotransferase* 23 U/L (4-35); Alkaline Phosphatase* 83 U/L (40-150); Anion Gap 5 mEq/L (7-15); Aspartate Amino Transferase* 24 U/L (12-35); Bilirubin Total* 0.5 mg/dL (0.1-1.5); Blood Urea Nitrogen* 13 mg/dL (5-24); Carbon Dioxide* 26 mmol/L (20-32); Creatinine* 1.0 mg/dL (0.5-1.5); Est. Creatinine Clearance* 62.58; Estimated Glomerular Filt Rate 70 ml/min; Total Protein* 7.1 g/dL (6.0-8.3)
[2025-05-20 09:36] LABS: Calcium* 9.2 mg/dL (8.4-10.6); Glucose* 103 mg/dL (60-115)
--- NOTE | 2025-05-20 10:11 | CRLHL7_ITS ---
For Patients: As a result of the Century Cures Act, medical imaging exams and procedure reports are released immediately into your electronic medical record. You may view this report before your referring provider. If you have questions, please contact your health care provider. INDICATION: Severe abdominal pain, bloody stools TECHNIQUE: CT abdomen and pelvis acquired with 81 cc Isovue 370 IV contrast. COMPARISON: CT abdomen and pelvis 05/05/2021, MRI abdomen 05/03/2015. FINDINGS: Lower chest: Unremarkable. Liver: Decreased segment 8 hemangioma measuring 1.9 x 1.8 centimeters (2), previously 3.4 x 3.3 centimeters compared to 2020. Scattered subcentimeter hypodense lesions in segment 5 are similar compared to 2015 and may small hemangiomas and areas of focal fat, as seen in 2015. Gallbladder and bile ducts: Cholecystectomy. Mild prominence of the common bile duct and intrahepatic biliary ducts, likely reservoir effect Pancreas: Unremarkable. Spleen: Unremarkable. Adrenal glands: Unremarkable. Kidneys: Unremarkable. No suspicious masses, stones, or hydronephrosis. GI tract: No obstruction. No evidence of significant bowel inflammation. Appendix is not visualized, but there are no secondary signs inflammation. Vasculature: Abdominal aorta is normal in caliber. Mesenteric arteries are patent. Lymph nodes: No lymphadenopathy. Peritoneum/Abdominal Wall: Unremarkable. Pelvis: Tubal ligation devices. Bones: Unremarkable for age. IMPRESSION: No acute findings to explain symptoms. Please note that all CT scans at this facility use dose modulation, iterative reconstruction, and/or weight-based dosing when appropriate to reduce radiation dose to as low as reasonably achievable. Dictated by Sophia Jefferson MD @ 05/20/2025 11:10:17 AM (Electronically Signed)
[2025-05-20] MEDS: MORPHINE 4 MG/ML INJ IVP (10:27)
[2025-05-20 10:59] VITALS: PULSE 93; O2SAT 96
[2025-05-20 11:00] VITALS: PULSE 90; O2SAT 96
[2025-05-20 11:08] VITALS: BP 122/80; PULSE 82; RESP 16; TEMP 37.2; O2SAT 100
[2025-05-21 13:13] LABS: C.Difficile Negative (Negative); CDIFFEPI 027 PRESUMPTIVE NEGATIVE (Negative)
[2025-05-23 04:53] LABS: Campylobacter PCR Not Detected; Enteroaggregative E coli PCR Not Detected; Enteropathogenic E coli PCR Detected; Enterotoxigenic E coli PCR Not Detected; Plesiomonas shig PCR Not Detected; Shiga toxin E coli PCR Not Detected
== END 2025-05-20 13:18 | disposition home or self-care (01) ==
PROVIDERS: Emergency Provider Family Medicine; PCP Internal Medicine
DX: R10.30 Lower abdominal pain, unspecified (principal); K92.1 Melena
CPT/HCPCS: 36415; 74177; 80053; 85025; 86140; 87045; 87046; 87427; 87493; 87507; 96374; 96375; 99284; J1885; J2270; J2405; J7030; Q9967

== ENCOUNTER 2025-05-24 07:54 | Outpatient (CLI) | payer OTHER, SELFPAY ==
--- NOTE | 2025-05-24 08:57 | P.ANES_ITS ---
Anesthesia Charges Start Date/Time Anesthesia Start Date: 05/24/25 Anesthesia Start Time: 08:30 Stop Date/Time Anesthesia Stop Date: 05/24/25 Anesthesia Stop Time: 08:51 Coding CPT Codes CPT Codes: BO LWR INTST SCR COLSC - 27104 ([id number]) P2 - PATIENT W/MILD SYST DISEASE, QK - SENIOR SSIS DEVELOPER 2-4 CNCRNT ANES PROC
--- NOTE | 2025-05-24 08:57 | W.ANESCHARGE ---
Anesthesia Charges Start Date/Time Anesthesia Start Date: 05/24/25 Anesthesia Start Time: 08:30 Stop Date/Time Anesthesia Stop Date: 05/24/25 Anesthesia Stop Time: 08:51 Coding CPT Codes CPT Codes: BO LWR INTST SCR COLSC - 51301 ([id number]) P2 - PATIENT W/MILD SYST DISEASE, QK - MUSEUM ARCHIVIST 2-4 CNCRNT ANES PROC
--- NOTE | 2025-05-24 09:24 | P.ANES_ITS ---
Anesthesia Charges Start Date/Time Anesthesia Start Date: 05/24/25 Anesthesia Start Time: 08:30 Stop Date/Time Anesthesia Stop Date: 05/24/25 Anesthesia Stop Time: 08:51 Coding CPT Codes CPT Codes: BO LWR INTST SCR COLSC - 85310 ([id number]) P2 - PATIENT W/MILD SYST DISEASE, QK - SENIOR ORACLE ADF DEVELOPER 2-4 CNCRNT ANES PROC, QX - CLAIMS SUPERVISOR SVC W/ MD MED DIRECTION
--- NOTE | 2025-05-24 09:24 | W.ANESCHARGE ---
Anesthesia Charges Start Date/Time Anesthesia Start Date: 05/24/25 Anesthesia Start Time: 08:30 Stop Date/Time Anesthesia Stop Date: 05/24/25 Anesthesia Stop Time: 08:51 Coding CPT Codes CPT Codes: BO LWR INTST SCR COLSC - 78726 ([id number]) P2 - PATIENT W/MILD SYST DISEASE, QK - ASSISTANT MANAGER OF OPERATIONS 2-4 CNCRNT ANES PROC, QX - CATTYMAN SVC W/ MD MED DIRECTION
== END 2025-05-24 07:55 | disposition home or self-care (01) ==
LOC: OP CLINIC 07:55
PROVIDERS: PCP Internal Medicine; Visit Provider Surgery
DX: Z12.11 Encounter for screening for malignant neoplasm of colon (principal); K90.0 Celiac disease; K58.9 Irritable bowel syndrome, unspecified
CPT/HCPCS: 00812; 45378; J2405; J2704

== ENCOUNTER 2025-06-22 10:57 | Outpatient (CLI) | payer OTHER, SELFPAY ==
--- NOTE | 2025-07-27 13:42 | W.PM.SLEEP ---
Sleep Study Details Details Interpreting Provider: Radha Date of Sleep Study: 06/22/25 Sleep Study Details: STUDY TYPE:? Home unattended ? BMI:? 26.62 ORDERING PROVIDER:Dede Saleem INDICATION:? Concern for sleep apnea ? SLEEP SUMMARY:? 561 minutes monitored RESPIRATORY SUMMARY:? AHI 7.8 per rule 1A, 2.9 per CMS guideline Low oxygen 91 Snoring 97% PERIODIC LIMB MOVEMENTS OF SLEEP:? Not recorded CARDIAC:? Range 62-108, mean 77.2 beats per minute IMPRESSION:? Mild obstructive sleep apnea per rule 1A, negative study per CMS guideline RECOMMENDATION: Treatment options include CPAP dental appliance and/or airway expansion surgery.
== END 2025-06-22 10:58 | disposition home or self-care (01) ==
LOC: SLEEP 11:00
PROVIDERS: PCP Internal Medicine; Visit Provider Internal Medicine
DX: G47.33 Obstructive sleep apnea (adult) (pediatric) (principal)
CPT/HCPCS: 95806

== ENCOUNTER 2025-07-30 07:54 | Outpatient (CLI) | payer OTHER, SELFPAY ==
--- NOTE | 2025-07-30 08:15 | CRLHL7_ITS ---
For Patients: As a result of the Century Cures Act, medical imaging exams and procedure reports are released immediately into your electronic medical record. You may view this report before your referring provider. If you have questions, please contact your health care provider. INDICATION: BILATERAL SCREENING MAMMOGRAM, ASYMPTOMATIC 50 Y/O FEMALE COMPARISON: 12/19/2023, 11/27/2022, 03/29/2021 TECHNIQUE: Digital mammogram in CC and MLO projections including computer-aided detection (CAD) and tomosynthesis. BREAST COMPOSITION: The breasts are heterogeneously dense, which may obscure small masses. FINDINGS: No suspicious findings. ASSESSMENT: BI-RADS 1 Negative RECOMMENDATION: Annual screening mammogram. A lay language report of this examination will be provided to the patient. Dictated by: Ramón Ch MD @ 07/30/2025 11:09:57 (Electronically Signed)
== END 2025-07-30 07:55 | disposition home or self-care (01) ==
LOC: MAMMO 07:54
PROVIDERS: PCP Internal Medicine; Visit Provider Obstetrics & Gynecology
DX: Z12.31 Encounter for screening mammogram for malignant neoplasm of breast (principal); R92.333 Mammographic heterogeneous density, bilateral breasts
CPT/HCPCS: 77063; 77067